=== PATIENT | female | born 2000 | race African-American/Black ===

== ENCOUNTER 2022-12-20 13:53 | Inpatient (IN) ==
[2022-12-20] MEDS ORDERED: Ondansetron ODT 4 mg TAB 4 MG TAB ONE (14:13)
[2022-12-20] MEDS ORDERED: Ondansetron ODT 4 mg TAB 4 MG TAB SL ONE (14:14)
[2022-12-20] MEDS ORDERED: Ondansetron 4 mg VIAL 2 MG/ML 2 ml VIAL IV ONE (15:42)
[2022-12-20] MEDS ORDERED: Lactated Ringers 1000 ml BAG 1,000 ML IV ONE ×2 (15:42→20:35)
[2022-12-20] MEDS ORDERED: Pantoprazole VIAL 40 MG VIAL IV ONE (18:16)
[2022-12-20 19:49] LABS: ABS Lymphocytes 1.2 10^3/ul (1.0-4.8); ABS Neutrophils 6.3 10^3/ul (1.5-7.7); Eosinophil % 0.5 %; Hematocrit 42 % (35-47); Lymphocyte % 14.3 %; Mean Corpuscular HGB Conc 34 g/dL (31-36); Mean Corpuscular Hemoglobin 29 pg (27-31); Mean Corpuscular Volume 87 fL (80-97); Mean Platelet Volume 6.9 fL (7.4-10.4); Platelet Count 246 10^3/uL (150-450); Red Blood Count 4.79 10^6 /uL (3.70-4.87); Red Cell Distribution Width 14 % (10-15); White Blood Count 8.7 10^3/uL (3.5-10.8)
[2022-12-20] MEDS ORDERED: Droperidol 5 MG/2 ML 2 ML VIAL IV ONE (19:50)
[2022-12-20 20:31] LABS: ALT 6 U/L (7-52); AST 16 U/L (13-39); Albumin 4.4 g/dL (3.2-5.2); Alkaline Phosphatase 45 U/L (35-149); Anion Gap 12 mmol/L (2-11); Blood Urea Nitrogen 34 mg/dL (6-24); C Reactive Protein 39.28 mg/L (<8.01); CO2 Carbon Dioxide 22 mmol/L (22-32); Calcium 9.3 mg/dL (8.6-10.3); Chloride 101 mmol/L (101-111); Creatinine, Serum 4.07 mg/dL (0.51-0.95); Globulin 2.2 g/dL (2-4); Glucose 89 mg/dL (70-100); Lipase 24 U/L (11.0-82.0); Magnesium 2.3 mg/dL (1.9-2.7); Potassium 3.6 mmol/L (3.5-5.0); Sodium 135 mmol/L (135-145); Total Protein 6.6 g/dL (6.4-8.9); eGFR CKD-EPI 15.3 (>60)
[2022-12-20 20:35] LABS: HCG Pregnancy < 0.60 mIU/mL
[2022-12-20 20:56] LABS: Hepatitis B Surface Antigen Nonreactive (Nonreactive)
[2022-12-20 21:01] LABS: Hepatitis A Ab IgM Negative (Negative)
[2022-12-20 21:02] LABS: Hepatitis B Core IgM Nonreactive (Nonreactive)
[2022-12-20 21:13] LABS: Hepatitis C Antibody Negative (Negative)
[2022-12-20 22:26] LABS: Urine Appearance Cloudy; Urine Bilirubin Negative (Negative); Urine Blood 1+ (Negative); Urine Color Yellow; Urine Glucose Negative (Negative); Urine Ketones Trace (Negative); Urine Nitrite Negative (Negative); Urine Protein 2+(100 mg/dL) (Negative); Urine Specific Gravity 1.005 (1.002-1.030); Urine Urobilinogen Negative (Negative)
[2022-12-20 22:41] LABS: Urine Bacteria 3+ (Absent); Urine Red Blood Cell Trace(0-2/hpf) (Absent); Urine Squamous Epithelial Cell Present (Absent); Urine White Blood Cell Trace(0-5/hpf) (Absent); Urine Yeast Present (Absent)
[2022-12-20] MEDS ORDERED: NORMOSOL-R pH 7.4 1000 mL BAG 1,000 ML IV SCH (23:00)
[2022-12-21] MEDS: Ondansetron 4 mg VIAL 2 MG/ML 2 ml VIAL IV PRN ×4 (04:51→22:25)
[2022-12-21 08:46] LABS: Calcium 8.8 mg/dL (8.6-10.3); Creatinine, Serum 4.22 mg/dL (0.51-0.95); Potassium 3.8 mmol/L (3.5-5.0); eGFR CKD-EPI 14.6 (>60)
[2022-12-21] MEDS ORDERED: LISDEXAMFETAMINE 50 MG PO SCH (09:00)
[2022-12-21] MEDS: Lactated Ringers 1000 ml BAG 1,000 ML IV SCH (15:40)
[2022-12-21 16:23] LABS: Calcium 8.8 mg/dL (8.6-10.3); Creatinine, Serum 4.37 mg/dL (0.51-0.95); Potassium 3.7 mmol/L (3.5-5.0)
[2022-12-22] MEDS: Lactated Ringers 1000 ml BAG 1,000 ML IV SCH ×3 (01:49→22:47)
[2022-12-22 06:38] LABS: ABS Eosinophils 0.1 10^3/ul (0-0.6); ABS Lymphocytes 1.9 10^3/ul (1.0-4.8); ABS Monocytes 0.9 10^3/ul (0-0.8); ABS Neutrophils 4.3 10^3/ul (1.5-7.7); Eosinophil % 1.7 %; Hematocrit 36 % (35-47); Hemoglobin 12.4 g/dL (12.0-16.0); Lymphocyte % 26.3 %; Mean Corpuscular HGB Conc 34 g/dL (31-36); Mean Corpuscular Hemoglobin 30 pg (27-31); Mean Corpuscular Volume 86 fL (80-97); Mean Platelet Volume 6.9 fL (7.4-10.4); Nucleated Red Blood Cells % 0.1; Platelet Count 213 10^3/uL (150-450); Red Blood Count 4.19 10^6 /uL (3.70-4.87); Red Cell Distribution Width 14 % (10-15); White Blood Count 7.2 10^3/uL (3.5-10.8)
[2022-12-22 06:56] LABS: Creatinine, Serum 4.55 mg/dL (0.51-0.95); Potassium 3.4 mmol/L (3.5-5.0)
[2022-12-22 06:57] LABS: Albumin 3.1 g/dL (3.2-5.2); Albumin/Globulin Ratio 1.6 (1-3); Calcium 8.4 mg/dL (8.6-10.3); Globulin 1.9 g/dL (2-4); Total Bilirubin 0.9 mg/dL (0.2-1.0); eGFR CKD-EPI 13.3 (>60)
[2022-12-22] MEDS ORDERED: Senna TAB 8.6 mg TAB PO PRN (15:37)
[2022-12-22] MEDS ORDERED: Polyethylene Glycol 3350 17 GM PACKET PO PRN (15:37)
[2022-12-22] MEDS ORDERED: Magnesium Hydroxide LIQ 30 ML UDC PO PRN (15:37)
[2022-12-23 06:25] LABS: ABS Eosinophils 0.1 10^3/ul (0-0.6); ABS Lymphocytes 2.1 10^3/ul (1.0-4.8); ABS Monocytes 0.9 10^3/ul (0-0.8); ABS Neutrophils 3.8 10^3/ul (1.5-7.7); Eosinophil % 2.1 %; Hematocrit 36 % (35-47); Hemoglobin 12.4 g/dL (12.0-16.0); Lymphocyte % 29.8 %; Mean Corpuscular HGB Conc 34 g/dL (31-36); Mean Corpuscular Hemoglobin 30 pg (27-31); Mean Corpuscular Volume 87 fL (80-97); Mean Platelet Volume 6.9 fL (7.4-10.4); Platelet Count 219 10^3/uL (150-450); Red Blood Count 4.14 10^6 /uL (3.70-4.87); Red Cell Distribution Width 14 % (10-15); White Blood Count 6.9 10^3/uL (3.5-10.8)
[2022-12-23 06:35] LABS: INR 1.09 (0.88-1.18)
[2022-12-23 06:44] LABS: Calcium 8.4 mg/dL (8.6-10.3); Creatinine, Serum 3.64 mg/dL (0.51-0.95); Potassium 3.4 mmol/L (3.5-5.0); eGFR CKD-EPI 17.4 (>60)
[2022-12-23] MEDS ORDERED: Potassium Chlor 20 meq TAB.ER PO SCH (09:00)
[2022-12-23] MEDS: Lactated Ringers 1000 ml BAG 1,000 ML IV SCH (09:07)
[2022-12-23 13:55] LABS: Calcium 8.6 mg/dL (8.6-10.3); Creatinine, Serum 3.13 mg/dL (0.51-0.95); Potassium 3.6 mmol/L (3.5-5.0); eGFR CKD-EPI 20.9 (>60)
[2022-12-23 13:59] VITALS: BP 137/96
[2022-12-23 16:07] LABS: Complement C3 103 mg/dL (75 - 175)
[2022-12-24 12:16] LABS: C-ANCA Negative (Negative); P-ANCA Negative (Negative)
== END 2022-12-23 16:05 | disposition home or self-care (01) | DRG 469 ==
LOC: ED 13:53 → EDHOLD 22:16 → MED 12-21 14:58
PROVIDERS: ADMIT Student in an Organized Health Care Education/Training Program; ATTEND Student in an Organized Health Care Education/Training Program